=== PATIENT | female | born 1970 ===

== ENCOUNTER 2016-09-08 13:13 | Emergency (ER) | payer SELFPAY ==
[2016-09-08 13:19] VITALS: BP 137/81; RESP 20
[2016-09-08] MEDS ORDERED: Albuterol-Ipratrop 3 mg / 0.5 (3 ml) UD INH STA (13:27)
--- NOTE | 2016-09-08 13:30 | ED PDOC ---
HPI: General Adult Time Seen by Provider: 09/08/16 13:15 Chief Complaint (Nursing): Flu-like Symptoms Chief Complaint (Provider): flu-like symptoms History Per: Patient History/Exam Limitations: no limitations Onset/Duration Of Symptoms: Days (x 5) Have you had recent travel within the past 21 days to any of the following countries: [place], [place], [place] or [place]?: No Current Symptoms Are (Timing): Still Present Additional Complaint(s): Rossy Arora is a 46 year old female, with a previous medical history of asthma, who presents to the ED with complaints of flu-like symptoms ongoing for the past 5 days. Pt reports symptoms include post nasal drip, cough worse at night, yellow sputum, chest tightness, feeling dehydrated, dizziness, sore throat and a fever. Pt reports to taking thera-flu which alleviated they body aches. Pt reports all other symptoms persist. Pt denies any sinus pain, ear pain, nausea, vomiting, diarrhea or recent sick contact. Pt denies any additional complaints at this time. of note, pt is allergic to prednisone PMD: none provided Past Medical History Reviewed: Historical Data, Nursing Documentation, Vital Signs Vital Signs: Last Vital Signs Temp 100 F H 09/08/16 13:17 Pulse 82 09/08/16 13:17 Resp 20 09/08/16 13:17 BP 137/81 09/08/16 13:17 Pulse Ox 97 09/08/16 13:34 - Medical History PMH: Asthma - Family History Family History: States: Unknown Family Hx - Home Medications Home Medications: Ambulatory Orders Medication Instructions Recorded Oseltamivir Phosphate [Tamiflu] 75 mg PO BID #10 capsule 09/08/16 - Allergies Allergies/Adverse Reactions: Allergies Allergy/AdvReac Type Severity Reaction Status Date / Time prednisone AdvReac FATIGUE Verified 09/08/16 13:17 Review of Systems ROS Statement: Except As Marked, All Systems Reviewed And Found Negative Constitutional: Positive for: Fever, Other (bosy aches) ENT: Positive for: Throat Pain. Negative for: Ear Pain, Other (sinus pain ) Respiratory: Positive for: Cough, Sputum (yellow ), Other (chest tightness ) Gastrointestinal: Negative for: Nausea, Vomiting, Diarrhea Physical Exam - Reviewed Nursing Documentation Reviewed: Yes Vital Signs Reviewed: Yes - Physical Exam Appears: Positive for: Well, Non-toxic, No Acute Distress Head Exam: Positive for: ATRAUMATIC, NORMAL INSPECTION, NORMOCEPHALIC Skin: Positive for: Normal Color, Warm, Dry ENT: Positive for: Normal ENT Inspection, TM Is/Are (normal), Other (Post nasal drip). Negative for: Sinus Pain/Drainage, Pharyngeal Erythema, Tonsillar Exudate, Tonsillar Swelling Cardiovascular/Chest: Positive for: Regular Rate, Rhythm Respiratory: Positive for: Normal Breath Sounds. Negative for: Decreased Breath Sounds, Accessory Muscle Use, Crackles, Rales, Rhonchi, Wheezing, Respiratory Distress Neurologic/Psych: Positive for: Alert, Oriented - ECG O2 Sat by Pulse Oximetry: 97 (RA) Pulse Ox Interpretation: Normal Medical Decision Making Medical Decision Making: Initial Impression: viral syndrome Initial Plan: * duo-neb * peak flow pre/post treatment * influenza A B * reevaluation pt with positive flu will be given tamiflu and pt improved after duoneb, advised to take albuterol as needed. stable VS and well appearing. Scribe Attestation: Documented by Marlene Palomares, acting as a scribe for Luz Maria Ahumada PA-C. Provider Scribe Attestation: All medical record entries made by the Scribe were at my direction and personally dictated by me. I have reviewed the chart and agree that the record accurately reflects my personal performance of the history, physical exam, medical decision making, and the department course for this patient. I have also personally directed, reviewed, and agree with the discharge instructions and disposition. Disposition - Clinical Impression Clinical Impression: Influenza - Patient ED Disposition Is Patient to be Admitted: No Counseled Patient/Family Regarding: Studies Performed, Diagnosis, Need For Followup, Rx Given - Disposition Disposition: Routine/Home Disposition Time: 13:56 Condition: STABLE Prescriptions: Oseltamivir Phosphate [Tamiflu] 75 mg PO BID #10 capsule Instructions: Oseltamivir (By mouth) Forms: [facility] ED School/Work Excuse
[2016-09-08] MEDS ORDERED: Albuterol-Ipratrop 3 mg / 0.5 (3 ml) UD ONE (13:42)
[2016-09-08 14:24] VITALS: PULSE 78; TEMP 99; O2SAT 99
== END 2016-09-08 14:24 | disposition home or self-care (01) ==
LOC: H.ER 13:13
DX: J11.1 Influenza due to unidentified influenza virus with other respiratory manifestations (principal); R05 Cough